=== PATIENT | male | born 1975 | race Hispanic/Latino ===

== ENCOUNTER 2018-02-02 20:42 | Emergency (ER) | payer OTHER ==
[~2018-02-02] VITALS: Ht 167.6 cm; Wt 75.7 kg
[~2018-02-02 20:42] MED LIST: ADVAIR 500/501 EA INH; ALBUTEROL SULF8.5 GM; ALBUTEROL0.63 MG/3; GLIPIZIDE-METF1 EAC1 PO; LIPITOR20 MG PO; MELOXICAM7.5 MG PO; NORCO 10-325 T1 EACH PO; ZYRTEC10 M3 PO
[2018-02-02] MEDS ORDERED: ACETAMINOPHEN 325 MG TAB ONE (21:19)
[2018-02-02] MEDS ORDERED: ACETAMINOPHEN 325 MG TAB PO ONE (21:30)
--- NOTE | 2018-02-02 22:37 | Diagnostic Imaging Report ---
EXAM: CHEST 2 VIEWS, PA and lateral INDICATION: Rule out pneumonia, chest body ache COMPARISON: None FINDINGS: LINES/TUBES: None LUNGS: No consolidations or edema. PLEURA: No effusions or pneumothorax. HEART AND MEDIASTINUM: Normal size and contour. BONES AND SOFT TISSUES: No acute findings. Lower cervical spine surgical hardware. IMPRESSION: No evidence of pneumonia. Signed by: Dr. Elizabeth Hollingsworth M.D. on 02/02/2018 10:33 PM
== END 2018-02-02 23:41 | disposition home or self-care (01) ==
LOC: ER 20:42
DX: R50.9 Fever, unspecified (principal); R05 Cough; J20.9 Acute bronchitis, unspecified; I10 Essential (primary) hypertension; J45.909 Unspecified asthma, uncomplicated; E78.5 Hyperlipidemia, unspecified; G89.29 Other chronic pain
CPT/HCPCS: 71046; 99283

== ENCOUNTER 2025-03-07 15:47 | Emergency (ER) | payer OTHER, MEDICARE ==
[~2025-03-07] VITALS: Ht 167.6 cm; Wt 97.5 kg
[~2025-03-07 15:47] MED LIST changes: +AMITRIPTYLINE100 MG PO; +ASPIRIN81 MG PO; +ATORVASTATIN CA40 MG PO; +GLIPIZIDE10 MG PO; +LISINOPRIL-HCT1 EACH PO; +METFORMIN HCL1000 MG PO; +OMEPRAZOLE40 MG PO; +PIOGLITAZONE HC30 MG PO; +PREGABALIN75 MG PO; +TIZANIDINE HCL2 MG PO
[2025-03-07] MEDS ORDERED: PENICILLIN V P500 MG PO (20:11)
[2025-03-07 20:20] VITALS: PULSE 84; RESP 20; TEMP 98.4; O2SAT 96
== END 2025-03-07 20:23 | disposition home or self-care (01) ==
LOC: ER 20:14
DX: K08.89 Other specified disorders of teeth and supporting structures (principal); K04.7 Periapical abscess without sinus; I10 Essential (primary) hypertension; E11.9 Type 2 diabetes mellitus without complications; E78.5 Hyperlipidemia, unspecified; M54.9 Dorsalgia, unspecified; M54.2 Cervicalgia; G89.29 Other chronic pain; J45.909 Unspecified asthma, uncomplicated
CPT/HCPCS: 99283